=== PATIENT | female | born 1950 | race Caucasian/White ===

== ENCOUNTER 2019-09-25 07:07 | Outpatient (CLI) | payer MEDICARE, OTHER ==
[~2019-09-25] VITALS: Ht 149.9 cm; Wt 82.1 kg
[~2019-09-25 07:07] MED LIST: ARAVA 20MG TABL20 MG PO; BLACK CHERRY PO; CALCIUM CARBON650 M2 PO; GARLIC1000 MG PO; MAREPA1200 MG PO; MOTRIN 800800 MG/TAB PO; MULTIVITAMIN1 CTB PO; NEURONTIN300 MG/CAP PO; PREDNISONE 5MG5 MG PO; TYLENOL 500MG500 MG PO; ULTRAM 50MG TAB50 MG PO; VANCOCIN HCL1 GM IV; VITAMIN C PUR1000 MG PO; XATMEP2.5 MG/1 M PO; ZESTORETIC 25 M1 TAB PO
[2019-09-25 07:58] LABS: HEMATOCRIT 40.6 % (37.0-47.0); HEMOGLOBIN 13.4 g/dl (12.5-16.0); MEAN CELL VOLUME 93 fl (80.0-100.0); MEAN CORPUSCULAR HEMOGLOBIN 31 pg (27.0-31.0); MEAN CORPUSCULAR HGB CONC 33 g/dl (33.0-37.0); PLATELET COUNT 210 K/mm3 (130-400); RED BLOOD COUNT 4.38 M/mm3 (4.10-5.30); REDCELL DISTRIBUTION WIDTH-CV 12.5 % (11.5-14.5)
[2019-09-25 08:26] LABS: INR 0.9 (0.8-3.0); PROTHROMBIN TIME 10.2 SECONDS (9.7-12.8)
[2019-09-25 08:30] LABS: CREATININE, serum 0.92 (0.52-1.25); POTASSIUM 3.7 mmol/L (3.4-5.0)
[2019-09-25 08:53] VITALS: BP 137/79; PULSE 59; TEMP 98.3
[2019-09-25 10:50] VITALS: BP 153/78; PULSE 56
[2019-09-25 11:05] VITALS: BP 155/76; PULSE 56
[2019-09-25 11:20] VITALS: BP 170/84; PULSE 59
[2019-09-25 11:35] VITALS: BP 170/75; PULSE 56
--- NOTE | 2019-09-25 11:52 | NUR ---
Discharge instructions given to pt.pt verbalizes understanding.INT removed,catheter tip intact.
--- NOTE | 2019-09-25 12:05 | NUR ---
Pt escorted out via wheelchair by this nurse.
== END 2019-09-25 13:08 | disposition home or self-care (01) ==
LOC: COL.RAD 07:07
PROVIDERS: Internal Medicine Cardiovascular Disease
DX: I35.1 Nonrheumatic aortic (valve) insufficiency (principal)
CPT/HCPCS: J2704; J7120